=== PATIENT | male | born 1945 | race Caucasian/White ===

== ENCOUNTER 2017-06-10 07:24 | Emergency (ER) | payer MEDICARE, BC | END 2017-06-10 08:00 | disposition home or self-care (01) | LOC: SCSER 07:24 | DX: K11.20 Sialoadenitis, unspecified (principal); E03.9 Hypothyroidism, unspecified; G43.909 Migraine, unspecified, not intractable, without status migrainosus; F41.9 Anxiety disorder, unspecified; F32.9 Major depressive disorder, single episode, unspecified; Z79.899 Other long term (current) drug therapy; Z79.82 Long term (current) use of aspirin | CPT/HCPCS: 99283; J7620 ==

== ENCOUNTER 2018-05-22 09:21 | Observation (INO) | payer MEDICARE, BC ==
[2018-05-22] MEDS ORDERED: Nitroglycerin 2% Ointment 1 INCH/1 GM Packet ONE (09:47)
[2018-05-22] MEDS ORDERED: Aspirin Chewable 81 MG TAB ONE (09:48)
[2018-05-22 09:49] LABS: #Basophils 0.1 thou/uL (0.0-0.2); #Eosinphils 0.2 thou/uL (0.0-0.7); #Lymphocytes 2.1 thou/uL (1.20-3.40); #Monocytes 0.9 thou/uL (0.11-0.59); #Neutrophils 7.9 thou/uL (1.40-6.50); %Basophils 0.9 % (0.0-1.0); %Eosinophils 1.9 % (0.0-10.0); %Lymphocytes 18.6 % (21.0-51.0); %Neutrophils 70.6 % (42.0-75.0); Hemoglobin 15.3 g/dL (14.0-18.0); Mean Corpuscular HGB CONC 33.4 g/dL (32.0-36.0); Mean Corpuscular Volume 92.8 fL (78.0-98.0); Mean Platelet Volume 7.5 fL (7.4-10.4); Platelet Count 217 thou/uL (130-400); RBC Distribution Width 12.4 % (11.5-14.5); Red Blood Cell (RBC) Count 4.94 mill/uL (4.70-6.10); White Blood Cell (WBC) Count 11.1 thou/uL (4.8-10.8)
[2018-05-22 10:04] LABS: ALT (SGPT) 28 U/L (8-55); AST (SGOT) 24 U/L (5-34); Albumin 4.2 g/dL (3.4-4.8); Alkaline Phosphatase 62 U/L (40-150); Anion Gap 13 mmol/L (10-20); BUN (Urea Nitrogen) 13 mg/dL (8.4-25.7); Bilirubin, Total 0.5 mg/dL (0.2-1.2); CK (CPK) 189 U/L (30-200); Calc. Creatinine Clearance 0 mL/min (70-130); Carbon Dioxide 25 mmol/L (23-31); Chloride 105 mmol/L (98-107); Estimated GFR-MDRD 78; Globulin 3.2 g/dL (2.4-3.5); Glucose 102 mg/dL (80-115); Potassium 3.4 mmol/L (3.5-5.1); Protein, Total 7.4 g/dL (5.8-8.1); Sodium 140 mmol/L (136-145)
--- NOTE | 2018-05-22 10:16 | RAD ---
PORTABLE AP CHEST XRAY: DATE: 05/22/2018. HISTORY: Chest pain. COMPARISON: 08/07/2016. FINDINGS: Loop recording device again overlies the left mid chest. Cardiac silhouette and pulmonary vasculatur e are within normal limits. There is minimal linear scarring versus atelectasis at each lung base. The lungs are otherwise clear. No other interval change. IMPRESSION: Minimal bibasilar atelectasis and/or scarring. There is otherwise no acute cardiopulmonary process. POS: NANI
[2018-05-22] MEDS ORDERED: Mag-Al Plus 1200 MG/1200 MG/120 MG/30 ML UDCUP ONE (10:23)
[2018-05-22] MEDS ORDERED: Lidocaine Viscous Sol 2% 15 ml UD Cup ONE (10:23)
[2018-05-22] MEDS ORDERED: Acetaminophen 500 MG TAB ONE (14:08)
[2018-05-22 15:03] VITALS: BMI 32.5
[2018-05-22 15:59] LABS: Troponin I Less than 0.010 ng/mL (< 0.028)
[2018-05-22] MEDS ORDERED: Acetaminophen 325 MG TAB PO PRN (17:57)
[2018-05-22] MEDS ORDERED: Ondansetron ODT 4 MG TAB PO PRN (17:57)
[2018-05-22] MEDS ORDERED: Nitroglycerin 0.4 MG TAB (25 Tab Bottle) PO PRN (17:57)
[2018-05-22] MEDS ORDERED: Guaifenesin DM 100-10/5 ML UDCUP PO PRN (17:57)
[2018-05-22] MEDS ORDERED: Acetaminophen 650 MG Suppository PR PRN (17:57)
[2018-05-22] MEDS ORDERED: Ondansetron PF 4 MG/2 ML Vial IVP PRN (17:57)
[2018-05-22] MEDS ORDERED: Zolpidem Tartrate 5 MG TAB PO PRN (17:58)
[2018-05-22] MEDS ORDERED: HYDROcodone/Acetaminophen 5/325 mg Tablet PO PRN (18:12)
[2018-05-22] MEDS ORDERED: Amlodipine 5 MG TAB PO SCH (18:30)
[2018-05-22 18:37] LABS: Troponin I Less than 0.010 ng/mL (< 0.028)
[2018-05-22] MEDS: diphenhydrAMINE 25 MG CAP PO SCH ×3 (20:06→23:43)
[2018-05-22] MEDS: predniSONE 20 MG TAB PO SCH ×3 (20:07→23:43)
[2018-05-22] MEDS: Famotidine 20 MG TAB PO SCH ×3 (20:07→23:42)
[2018-05-22] MEDS ORDERED: Amitriptyline HCl 25 MG TAB PO SCH (21:00)
[2018-05-22] MEDS ORDERED: Loratadine 10 MG TAB PO SCH (21:00)
[2018-05-22] MEDS ORDERED: Rosuvastatin 20 MG TAB PO SCH (21:00)
[2018-05-22] MEDS: Fish Oil 1,000 MG CAP PO SCH (21:07)
[2018-05-22] MEDS: Acyclovir 400 mg Tablet PO SCH (21:10)
[2018-05-22] MEDS: Primidone 50 MG TAB PO SCH (21:14)
--- NOTE | 2018-05-22 21:41 | HP ---
PRIMARY CARE PHYSICIAN: Nicholas De León MD PRIMARY R[employer] ROUTE CARRIER: Dennis Hicks MD CHIEF COMPLAINT: Chest pain. HISTORY OF PRESENT ILLNESS: This is a 72-year-old white male with a known history of mild coronary artery disease, never requiring stent, last catheterization in 2012, followed by Dr. Hicks, also with an implantable patient monitor due to previous syncopal episodes and most recent echocardiogram done within the last six months. He reports that this morning after he woke up, he got out of bed and around 9 o'clock, he was heading toward the bathroom and he had a sudden severe sharp chest pain in the middle of his back between his shoulder blades, followed by pressure, pain sensation across the front of his chest. This was associated with chest tightness and trouble breathing. He felt a little bit lightheaded like he might pass out, but he did not black out. These symptoms persisted, so he went to the emergency room. In the ER, he was given nitroglycerin paste, which markedly improved the symptoms and now he does have a little dull pressure across the front of his chest. He did have a little nausea with it. No vomiting. No other associated symptoms. The patient has been having a rash across the top of his back, which was papular and red for about 2 or 3 weeks and then it got quite painful, so earlier in this week, he went to his primary care doctor and was diagnosed with possible shingles and put on acyclovir. The papules do tend to cross the midline a little bit though and he had a few down low on his back as well, not just in the line on the top. PAST MEDICAL HISTORY: 1. Mild coronary artery disease. Most recent catheterization in 2012. Never had to have stents or bypass surgery. 2. Hypothyroidism. 3. Obstructive sleep apnea. 4. Sinus allergies. 5. Previous shingles episodes. 6. Hypertension. 7. Hyperlipidemia. 8. Tremors, followed by Dr. Jones. 9. Migraines. PAST SURGICAL HISTORY: 1. Hydrocele in 1964. 2. Appendectomy in 1976. 3. Vasectomy in 1977. 4. Nerve root test in right hand in 1989. 5. Repair of right knee meniscus in 1993. 6. Repair right eye retina in 1994 and left eye retina in 1995. 7. Cholecystectomy in 1998. 8. Left shoulder repair in 2002. 9. Detached retina repair on the right in 2005. 10. Left knee torn meniscus repair in 2009. 11. Right shoulder rotator cuff repair in 2013. 12. Cardiac catheterizations in 2004 and 2012. PSYCHIATRIC HISTORY: 1. Anxiety. 2. Depression. ALLERGIES: 1. IODINE. 2. LASIX. 3. PENICILLIN. 4. SHELLFISH. MEDICATIONS: 1. Acyclovir 400 mg 4 times a day. 2. Aspirin 81 mg twice a day. 3. Amitriptyline 50 mg at night. 4. Amlodipine 2.5 mg daily. 5. Vitamin D3 5000 units daily. 6. Fish oil 1200 mg twice a day. 7. Prozac 40 mg daily. 8. Xyzal 5 mg at night. 9. Synthroid 175 mcg daily. 10. Primidone 100 mg twice a day. 11. Crestor 20 mg at night. REVIEW OF SYSTEMS: CONSTITUTIONAL: No fevers, no chills. No weight changes. EYES: No double vision or blurred vision. ENT: He has had some intermittent nasal congestion and drainage. This is allergic in nature and it comes and goes. No sore throat. CARDIOVASCULAR: See HPI. No orthopnea. PULMONARY: Mild intermittent cough that is chronic from his allergies. No current shortness of breath or wheezing. GASTROINTESTINAL: The patient did have a nausea earlier, none now. No vomiting. No abdominal pain. No diarrhea. He is a little constipated, but does tend to have a bowel movement daily. GENITOURINARY: No dysuria or hematuria. MUSCULOSKELETAL: No muscle aches or joint pains currently, just a back pain earlier that has resolved. SKIN: See HPI. NEUROLOGIC: No numbness or focal weakness. He does have chronic tingling in bilateral lower extremities. PHYSICAL EXAMINATION: VITAL SIGNS: Blood pressure 161/89, pulse 85, respirations 16, temperature 97.8, O2 saturation 96% on room air. GENERAL: This is a well-developed obese, white male, in no acute distress. HEENT: Pupils are equal, round, and reactive to light. Oropharynx is clear without lesions, erythema, or exudate. NECK: Supple. No lymphadenopathy. No thyroid nodules or enlargement. No JVD. HEART: Regular rate and rhythm. No murmurs, rubs, or gallops. LUNGS: Clear to auscultation bilaterally. No wheezes, crackles, or rhonchi. ABDOMEN: Soft, nontender to palpation. Normoactive bowel sounds. No hepatosplenomegaly or other masses. EXTREMITIES: No clubbing, cyanosis, or edema. Good peripheral pulses. SKIN: The patient does have a line of scattered papules that are nontender to palpation without any sort of crusting or vesicles on his left upper back, but this does extend for a few cm into the right side as well and then he has a couple down on the right side of his lumbar spine. No other rashes noted. NEUROLOGIC: Intact strength and sensation in all extremities. No facial droop. PSYCHIATRIC: Alert and oriented x3. Normal mood and affect. LABORATORY DATA: CBC with a white blood cell count of 11.1. The rest is normal. Complete metabolic panel is notable only for potassium of 3.4. His troponins are negative x2. His brain natriuretic peptide was negative. IMAGING: Chest x-ray; I did review the chest x-ray along with the radiologist's report. It does show the implanted recorder. No acute cardiopulmonary process visualized. EKG; I did review the EKG done in the emergency room that shows normal sinus rhythm. There is some QT prolongation, but no ST-segment changes. No T-wave inversions. No acute ischemic changes. ASSESSMENT: 1. Chest pain. The patient does have a history of coronary artery disease. We will watch him on the potline monitor overnight and recheck his troponins one more time to make sure they would not bump. I did talk to Dr. Hicks, the patient's web press operator. He will evaluate the patient in the hospital and determine if he needs a repeat catheterization. 2. Hypertension, currently uncontrolled. We will resume patient's home blood pressure medications. These may need to be titrated up if he remains elevated. We will also continue his nitroglycerin. 3. Hyperlipidemia. We will resume the patient's statin. 4. Depression and anxiety. We will resume patient's fluoxetine. 5. Hypothyroidism. Resume patient's levothyroxine. 6. Gastrointestinal prophylaxis. We will put the patient on Pepcid twice a day. 7. Possible shingles. The patient's rash is not completely characteristic of shingles, but I doubt that the acyclovir is dangerous at this point, so we will go ahead and continue for now. 8. Deep venous thrombosis prophylaxis. We will put the patient on Lovenox subcu and give SCDs while he is in bed. 9. Code status. The patient is a full code. Should he be incapacitated, his would be his medical decision maker, her name is Ekta Dickerson. Job ID: [id number]
[2018-05-23] MEDS: Primidone 50 MG TAB PO SCH (05:59)
[2018-05-23] MEDS: Acyclovir 400 mg Tablet PO SCH ×2 (06:00→13:16)
[2018-05-23] MEDS: Fish Oil 1,000 MG CAP PO SCH (06:00)
[2018-05-23] MEDS ORDERED: Levothyroxine 175 MCG TAB PO SCH (06:00)
[2018-05-23 06:33] LABS: #Lymphocytes 1.2 thou/uL (1.20-3.40); #Monocytes 0.2 thou/uL (0.11-0.59); #Neutrophils 5.7 thou/uL (1.40-6.50); %Basophils 0.3 % (0.0-1.0); %Eosinophils 0.3 % (0.0-10.0); %Lymphocytes 16.5 % (21.0-51.0); %Monocytes 2.6 % (0.0-10.0); %Neutrophils 80.4 % (42.0-75.0); Hemoglobin 14.7 g/dL (14.0-18.0); Mean Corpuscular Hemoglobin 31.9 pg (27.0-31.0); Mean Corpuscular Volume 96.5 fL (78.0-98.0); Mean Platelet Volume 7.8 fL (7.4-10.4); Platelet Count 209 thou/uL (130-400); RBC Distribution Width 12.3 % (11.5-14.5); Red Blood Cell (RBC) Count 4.61 mill/uL (4.70-6.10); White Blood Cell (WBC) Count 7.1 thou/uL (4.8-10.8)
[2018-05-23 07:02] LABS: Anion Gap 13 mmol/L (10-20); BUN (Urea Nitrogen) 17 mg/dL (8.4-25.7); Calc. Creatinine Clearance 118 mL/min (70-130); Carbon Dioxide 21 mmol/L (23-31); Chloride 106 mmol/L (98-107); Estimated GFR-MDRD 78; Glucose 146 mg/dL (80-115); Potassium 4.1 mmol/L (3.5-5.1); Sodium 136 mmol/L (136-145)
[2018-05-23] MEDS ORDERED: Heparin 10,000 UNITS/1 ML VIAL ONE (07:09)
[2018-05-23] MEDS ORDERED: Nitroglycerin 100MG/250ML BOT 0 ML ONE (07:10)
[2018-05-23] MEDS: Famotidine 20 MG TAB PO SCH (07:32)
[2018-05-23] MEDS: predniSONE 20 MG TAB PO SCH (07:33)
[2018-05-23] MEDS: diphenhydrAMINE 25 MG CAP PO SCH (07:33)
[2018-05-23] MEDS ORDERED: Midazolam HCl 2 mg/2 ml Vial ONE (08:11)
[2018-05-23] MEDS ORDERED: Nitroglycerin 0.4 MG TAB (25 Tab Bottle) SL PRN (08:29)
[2018-05-23] MEDS ORDERED: Acetaminophen/Codeine 30-300mg Tablet PO PRN ×2 (08:29)
[2018-05-23] MEDS ORDERED: Sodium Chloride 0.9% 200 ML IV PRN (08:29)
--- NOTE | 2018-05-23 08:30 | PDOC.PN ---
- Subjective Encounter Start Date: 05/23/18 Encounter Start Time: 11:00 Subjective: Patient back from cath this morning. No progression in CAD since last -: cath. No further chest pain. BP still up a bit. - Objective Resuscitation Status - Order Detail: 05/22/18 17:52 Resuscitation Status Routine Resuscitation Status: FULL: Full Resuscitation MAR Reviewed: Yes Vital Signs & Weight: Vital Signs (12 hours) Temp Pulse Resp BP Pulse Ox 05/23/18 05:58 83 05/23/18 04:40 97.8 F 83 18 132/70 94 L 05/22/18 21:08 84 Weight Weight 253 lb 14.4 oz I&O: 05/22/18 05/23/18 05/24/18 06:59 06:59 06:59 Intake Total 1140 Output Total 350 Balance 790 Result Diagrams: 05/23/18 05:00 05/23/18 06:06 Phys Exam - Physical Examination Constitutional: NAD HEENT: moist MMs Respiratory: no wheezing, no rales, no rhonchi Cardiovascular: RRR, no significant murmur Gastrointestinal: soft, positive bowel sounds Neurological: non-focal, moves all 4 limbs Psychiatric: normal affect, A&O x 3 Dx/Plan (1) Chest pain Code(s): R07.9 - CHEST PAIN, UNSPECIFIED Status: Acute Comment: negative troponins and EKG (2) CAD (coronary artery disease) Code(s): I25.10 - ATHSCL HEART DISEASE OF [place] CORONARY ARTERY W/O ANG PCTRS Status: Chronic Qualifiers: Coronary Disease-Associated Artery/Lesion type: [place] artery Comment: mild, repeat cath this morning showing no progression of disease (3) Hypertension Code(s): I10 - ESSENTIAL (PRIMARY) HYPERTENSION Status: Chronic Qualifiers: Hypertension type: essential hypertension Qualified Code(s): I10 - Essential (primary) hypertension Comment: still running a little high, typically low at home, possibly from sodium load a [place] restaraunt the night before coming in (4) Hyperlipidemia Code(s): E78.5 - HYPERLIPIDEMIA, UNSPECIFIED Status: Chronic (5) Depression Code(s): F32.9 - MAJOR DEPRESSIVE DISORDER, SINGLE EPISODE, UNSPECIFIED Status : Chronic Comment: with anxiety, continue home SSRI - Plan cont current plan of care Will d/c home this afternoon if cleared by Dr. Hicks. * . - Discharge Day Encounter end time: 11:15
[2018-05-23] MEDS ORDERED: Enoxaparin Sodium 40 MG/0.4 ML SYRINGE SC SCH (09:00)
[2018-05-23] MEDS ORDERED: Amlodipine 5 MG TAB PO SCH (09:00)
[2018-05-23] MEDS ORDERED: FLUoxetine HCl 20 MG CAP PO SCH (09:00)
[2018-05-23] MEDS ORDERED: Aspirin 325 mg Enteric Coated Tablet PO SCH (09:00)
[2018-05-23 12:12] VITALS: BP 158/78; TEMP 97.6
--- NOTE | 2018-05-23 21:13 | DIS ---
DATE OF ADMISSION: 05/22/2018 DATE OF DISCHARGE: 05/23/2018 PRIMARY CARE PHYSICIAN: Nicholas De León MD REASON FOR ADMISSION: Chest pain. DIAGNOSES AT DISCHARGE: 1. Chest pain, noncardiac. 2. Coronary artery disease, mild, stable. 3. Hypertension. 4. Hyperlipidemia. 5. Depression with anxiety. PROCEDURES: Cardiac catheterization showing 20% stenosis at the mid LAD and 40% ostial stenosis at the first obtuse marginal. CONSULTATION: Cardiology, Dr. Hicks. SUMMARY OF HOSPITAL COURSE: This is a 72-year-old white male with a known history of mild coronary artery disease, never requiring stent or surgery, last catheterized by Dr. Hicks in 2012. He presented with chest pain starting in the morning and had a large [place] dinner at a restaurant, he usually was trying to just eat at home, the night before. Chest pain started with a sharp pain in his back and then progressed to severe chest pressure and shortness of breath. This did improve in the emergency room with nitroglycerin paste. The patient's EKG and cardiac markers were all negative. Dr. Hicks was consulted. He took the patient back for catheterization, which showed no progression of coronary artery disease since his last catheterization. The patient was chest pain free on the day of discharge and is being discharged home. DISCHARGE MANAGEMENT: Discharged home. FOLLOWUP: Follow up with Dr. Hicks as needed and with primary care physician. ACTIVITY: As tolerated. DIET: Healthy heart low-sodium diet. MEDICATIONS: Resume all home medications. 1. Aspirin 81 mg daily. 2. Acyclovir 400 mg 4 times a day. 3. Amitriptyline 50 mg at night. 4. Amlodipine 2.5 mg daily. 5. Vitamin D3 of 5000 units daily. 6. Fish oil 1200 mg twice a day. 7. Prozac 40 mg daily. 8. Xyzal 5 mg at night. 9. Synthroid 175 mcg daily. 10. Primidone 100 mg twice a day. 11. Crestor 20 mg at night. Job ID: [id number]
== END 2018-05-23 15:58 | disposition home or self-care (01) ==
LOC: SCSER 09:21 → ERHOLD 10:57 → 2SW 14:46
PROVIDERS: ADMIT Internal Medicine; ATTEND Internal Medicine
PROC: 4A023N7 Measurement of Cardiac Sampling and Pressure, Left Heart, Percutaneous Approach (ICD-10-PCS; principal; 2018-05-22)
PROC: B2111ZZ Fluoroscopy of Multiple Coronary Arteries using Low Osmolar Contrast (ICD-10-PCS; 2018-05-22)
DX: R07.89 Other chest pain (principal); I25.10 Atherosclerotic heart disease of native coronary artery without angina pectoris; E03.9 Hypothyroidism, unspecified; G47.33 Obstructive sleep apnea (adult) (pediatric); I10 Essential (primary) hypertension; E78.5 Hyperlipidemia, unspecified; G43.909 Migraine, unspecified, not intractable, without status migrainosus; F41.8 Other specified anxiety disorders; Z79.82 Long term (current) use of aspirin; Z79.899 Other long term (current) drug therapy; Z88.0 Allergy status to penicillin; Z91.013 Allergy to seafood; Z91.040 Latex allergy status; Z91.041 Radiographic dye allergy status
CPT/HCPCS: 71045; 80048; 80053; 82550; 83880; 84484 ×2; 85025 ×2; 93005; 93458; 94760; 99285; G0378; 36415; 99152; J1644; J2250; Q0163

== ENCOUNTER 2018-08-31 14:06 | Emergency (ER) | payer MEDICARE, BC | END 2018-08-31 14:33 | disposition home or self-care (01) | LOC: SCSER 14:06 | DX: J02.9 Acute pharyngitis, unspecified (principal); G47.30 Sleep apnea, unspecified; E03.9 Hypothyroidism, unspecified; G43.909 Migraine, unspecified, not intractable, without status migrainosus; F32.9 Major depressive disorder, single episode, unspecified; F41.9 Anxiety disorder, unspecified; Z79.899 Other long term (current) drug therapy; Z79.82 Long term (current) use of aspirin | CPT/HCPCS: 99282 ==

== ENCOUNTER 2021-05-09 09:54 | Outpatient (CLI) | payer MEDICARE, BC | END 2021-05-09 09:55 | disposition home or self-care (01) | LOC: ULT 09:54 | PROVIDERS: ATTEND Internal Medicine Nephrology | DX: N18.30 Chronic kidney disease, stage 3 unspecified (principal); Z90.5 Acquired absence of kidney | CPT/HCPCS: 36415; 76770; 80048; 81001 ==

== ENCOUNTER 2021-05-23 16:30 | Outpatient (CLI) | payer MEDICARE, BC | END 2021-05-23 16:31 | disposition home or self-care (01) | LOC: SLEEPLAB 16:30 | PROVIDERS: ATTEND Internal Medicine | DX: G47.33 Obstructive sleep apnea (adult) (pediatric) (principal); R06.83 Snoring; I10 Essential (primary) hypertension | CPT/HCPCS: 95806 ==

== ENCOUNTER 2021-10-01 23:37 | Inpatient (IN) | payer MEDICARE, BC ==
[2021-10-02 00:41] VITALS: BMI 32.2
[2021-10-02] MEDS ORDERED: Ondansetron ODT 4 MG TAB PO PRN (04:59)
[2021-10-02 05:39] LABS: #Monocytes 1.1 thou/uL (0.11-0.59); %Basophils 0.1 % (0.0-1.0); %Eosinophils 0.1 % (0.0-10.0); %Lymphocytes 9.8 % (21.0-51.0); %Monocytes 10.8 % (0.0-10.0); %Neutrophils 79.2 % (42.0-75.0); Mean Corpuscular HGB CONC 32.6 g/dL (32.0-36.0); Mean Corpuscular Hemoglobin 32.4 pg (27.0-31.0); Mean Corpuscular Volume 99.3 fL (78.0-98.0); Mean Platelet Volume 7.1 fL (7.4-10.4); Platelet Count 190 thou/uL (130-400); RBC Distribution Width 12.5 % (11.5-14.5); Red Blood Cell (RBC) Count 4.03 mill/uL (4.70-6.10); White Blood Cell (WBC) Count 10.1 thou/uL (4.8-10.8)
[2021-10-02 06:00] LABS: ALT (SGPT) 18 U/L (8-55); AST (SGOT) 13 U/L (5-34); Albumin 3.5 g/dL (3.4-4.8); Alkaline Phosphatase 65 U/L (40-110); Anion Gap 13 mmol/L (10-20); BUN (Urea Nitrogen) 13 mg/dL (8.4-25.7); Calc. Creatinine Clearance 109 mL/min (70-130); Carbon Dioxide 22 mmol/L (23-31); Chloride 107 mmol/L (98-107); Globulin 2.9 g/dL (2.4-3.5); Glucose 98 mg/dL (83-110); Potassium 3.9 mmol/L (3.5-5.1); Protein, Total 6.4 g/dL (5.8-8.1); Sodium 138 mmol/L (136-145)
[2021-10-02] MEDS: Cefepime 2 GM in Sodium Chloride 0.9% 100 ML IVPB SCH ×3 (06:14→23:04)
[2021-10-02] MEDS: VANCOMYCIN 1.75 GM/500 ML BAG 1.75 GM in Premix Bag 1 BAG IVPB SCH ×2 (08:37→21:32)
[2021-10-02] MEDS: Aspirin 81 mg Enteric Coated Tablet PO SCH ×2 (08:41→21:32)
[2021-10-02] MEDS: Acetaminophen 325 MG TAB PO PRN ×2 (08:41→14:15)
[2021-10-02] MEDS: Enoxaparin Sodium 40 MG/0.4 ML SYRINGE SC SCH (08:41)
[2021-10-02] MEDS: Levothyroxine 175 MCG TAB PO SCH (08:42)
[2021-10-02] MEDS: Bupropion 150 MG SR TAB PO SCH (08:42)
[2021-10-02] MEDS: Fish Oil 1,000 MG CAP PO SCH ×2 (08:42→21:32)
[2021-10-02] MEDS: Primidone 50 MG TAB PO SCH ×2 (08:43→21:33)
[2021-10-02] MEDS: Loratadine 10 MG TAB PO SCH (08:43)
[2021-10-02] MEDS: Rosuvastatin 20 MG TAB PO SCH (08:43)
[2021-10-02] MEDS: FLUoxetine HCl 20 MG CAP PO SCH (08:43)
[2021-10-02] MEDS: Cholecalciferol 1,000 UNITS (25 MCG) TAB PO SCH (08:54)
[2021-10-02] MEDS: Amitriptyline HCl 25 MG TAB PO SCH (21:33)
[2021-10-02] MEDS: Zolpidem Tartrate 5 MG TAB PO PRN (23:04)
[2021-10-03] MEDS: Cefepime 2 GM in Sodium Chloride 0.9% 100 ML IVPB SCH ×3 (05:21→23:49)
[2021-10-03 05:38] LABS: #Eosinphils 0.1 thou/uL (0.0-0.7); #Lymphocytes 1.4 thou/uL (1.20-3.40); #Monocytes 1.2 thou/uL (0.11-0.59); #Neutrophils 6.9 thou/uL (1.40-6.50); %Basophils 0.1 % (0.0-1.0); %Eosinophils 0.8 % (0.0-10.0); %Lymphocytes 14.4 % (21.0-51.0); %Monocytes 12.2 % (0.0-10.0); %Neutrophils 72.5 % (42.0-75.0); Hemoglobin 12.1 g/dL (14.0-18.0); Mean Corpuscular HGB CONC 32.8 g/dL (32.0-36.0); Mean Corpuscular Hemoglobin 32.7 pg (27.0-31.0); Mean Corpuscular Volume 99.6 fL (78.0-98.0); Mean Platelet Volume 7.5 fL (7.4-10.4); Platelet Count 155 thou/uL (130-400); RBC Distribution Width 12.3 % (11.5-14.5); White Blood Cell (WBC) Count 9.6 thou/uL (4.8-10.8)
[2021-10-03 06:03] LABS: Anion Gap 12 mmol/L (10-20); BUN (Urea Nitrogen) 9 mg/dL (8.4-25.7); Calc. Creatinine Clearance 112 mL/min (70-130); Calcium 8.4 mg/dL (7.8-10.44); Carbon Dioxide 24 mmol/L (23-31); Chloride 104 mmol/L (98-107); Glucose 93 mg/dL (83-110); Potassium 3.9 mmol/L (3.5-5.1); Sodium 136 mmol/L (136-145)
[2021-10-03 07:16] LABS: Vancomycin, Trough 15.5 ug/mL
[2021-10-03] MEDS: Cholecalciferol 1,000 UNITS (25 MCG) TAB PO SCH (10:01)
[2021-10-03] MEDS: Aspirin 81 mg Enteric Coated Tablet PO SCH ×2 (10:01→20:36)
[2021-10-03] MEDS: Bupropion 150 MG SR TAB PO SCH (10:01)
[2021-10-03] MEDS: Fish Oil 1,000 MG CAP PO SCH ×2 (10:03→20:36)
[2021-10-03] MEDS: Enoxaparin Sodium 40 MG/0.4 ML SYRINGE SC SCH (10:03)
[2021-10-03] MEDS: FLUoxetine HCl 20 MG CAP PO SCH (10:03)
[2021-10-03] MEDS: Levothyroxine 175 MCG TAB PO SCH (10:03)
[2021-10-03] MEDS: Loratadine 10 MG TAB PO SCH (10:04)
[2021-10-03] MEDS: Rosuvastatin 20 MG TAB PO SCH (10:04)
[2021-10-03] MEDS: Primidone 50 MG TAB PO SCH ×2 (10:04→20:36)
[2021-10-03] MEDS: VANCOMYCIN 1.75 GM/500 ML BAG 1.75 GM in Premix Bag 1 BAG IVPB SCH ×2 (11:01→20:37)
[2021-10-03] MEDS ORDERED: Amlodipine 5 MG TAB PO SCH (16:15)
[2021-10-03] MEDS ORDERED: SUMAtriptan Succinate 6 MG/0.5 ML VIAL SC SCH (16:30)
[2021-10-03] MEDS ORDERED: cloNIDine 0.1 MG TAB PO PRN (17:33)
[2021-10-03] MEDS ORDERED: Labetalol HCl 100 MG/20 ML VIAL SLOW IVP PRN (17:33)
[2021-10-03] MEDS: hydrALAZINE 25 MG TAB PO SCH ×2 (17:51→20:35)
[2021-10-03] MEDS: Phenazopyridine HCl 97.5 MG TABLET PO SCH (17:58)
[2021-10-03] MEDS: Amitriptyline HCl 25 MG TAB PO SCH (20:35)
[2021-10-03] MEDS: Zolpidem Tartrate 5 MG TAB PO PRN (22:07)
[2021-10-04] MEDS: Cefepime 2 GM in Sodium Chloride 0.9% 100 ML IVPB SCH ×2 (05:35→15:37)
[2021-10-04 08:12] LABS: #Eosinphils 0.1 thou/uL (0.0-0.7); #Lymphocytes 1.4 thou/uL (1.20-3.40); #Monocytes 1.1 thou/uL (0.11-0.59); #Neutrophils 5.4 thou/uL (1.40-6.50); %Basophils 0.4 % (0.0-1.0); %Eosinophils 1.5 % (0.0-10.0); %Lymphocytes 17.8 % (21.0-51.0); %Monocytes 13.6 % (0.0-10.0); %Neutrophils 66.7 % (42.0-75.0); Hemoglobin 12.9 g/dL (14.0-18.0); Mean Corpuscular HGB CONC 33.3 g/dL (32.0-36.0); Mean Corpuscular Hemoglobin 32.7 pg (27.0-31.0); Platelet Count 177 thou/uL (130-400); RBC Distribution Width 12.1 % (11.5-14.5); Red Blood Cell (RBC) Count 3.94 mill/uL (4.70-6.10)
[2021-10-04] MEDS: Fish Oil 1,000 MG CAP PO SCH (08:28)
[2021-10-04] MEDS: Bupropion 150 MG SR TAB PO SCH (08:31)
[2021-10-04] MEDS: FLUoxetine HCl 20 MG CAP PO SCH (08:31)
[2021-10-04] MEDS: Levothyroxine 175 MCG TAB PO SCH (08:31)
[2021-10-04] MEDS: Rosuvastatin 20 MG TAB PO SCH (08:31)
[2021-10-04] MEDS: Cholecalciferol 1,000 UNITS (25 MCG) TAB PO SCH (08:31)
[2021-10-04] MEDS: Aspirin 81 mg Enteric Coated Tablet PO SCH ×2 (08:31→20:58)
[2021-10-04] MEDS: Phenazopyridine HCl 97.5 MG TABLET PO SCH ×3 (08:31→17:24)
[2021-10-04] MEDS: hydrALAZINE 25 MG TAB PO SCH ×4 (08:32→20:57)
[2021-10-04] MEDS: Enoxaparin Sodium 40 MG/0.4 ML SYRINGE SC SCH (08:32)
[2021-10-04] MEDS: Loratadine 10 MG TAB PO SCH (08:32)
[2021-10-04 08:34] LABS: Anion Gap 13 mmol/L (10-20); BUN (Urea Nitrogen) 9 mg/dL (8.4-25.7); Calc. Creatinine Clearance 132 mL/min (70-130); Calcium 8.6 mg/dL (7.8-10.44); Carbon Dioxide 23 mmol/L (23-31); Chloride 103 mmol/L (98-107); Glucose 91 mg/dL (83-110); Potassium 3.5 mmol/L (3.5-5.1); Sodium 135 mmol/L (136-145)
[2021-10-04] MEDS: Primidone 50 MG TAB PO SCH ×2 (08:38→20:58)
[2021-10-04] MEDS ORDERED: Amlodipine 5 MG TAB PO SCH (09:00)
[2021-10-04] MEDS: VANCOMYCIN 1.75 GM/500 ML BAG 1.75 GM in Premix Bag 1 BAG IVPB SCH (09:26)
[2021-10-04] MEDS ORDERED: Furosemide 40 MG/4 ML VIAL SLOW IVP SCH (09:45)
[2021-10-04] MEDS ORDERED: SUMAtriptan Succinate 6 MG/0.5 ML VIAL SC PRN (17:51)
[2021-10-04] MEDS: Amitriptyline HCl 25 MG TAB PO SCH (20:58)
[2021-10-04] MEDS ORDERED: Tamsulosin HCl 0.4 MG CAP PO SCH (21:00)
[2021-10-04] MEDS: Zolpidem Tartrate 5 MG TAB PO PRN (21:04)
[2021-10-05 05:09] LABS: #Eosinphils 0.2 thou/uL (0.0-0.7); #Lymphocytes 1.4 thou/uL (1.20-3.40); #Neutrophils 4.1 thou/uL (1.40-6.50); %Basophils 0.3 % (0.0-1.0); %Eosinophils 2.8 % (0.0-10.0); %Lymphocytes 21.1 % (21.0-51.0); %Monocytes 14.4 % (0.0-10.0); %Neutrophils 61.4 % (42.0-75.0); Hemoglobin 12.9 g/dL (14.0-18.0); Mean Corpuscular HGB CONC 33.6 g/dL (32.0-36.0); Mean Corpuscular Hemoglobin 32.7 pg (27.0-31.0); Mean Corpuscular Volume 97.3 fL (78.0-98.0); Mean Platelet Volume 7.2 fL (7.4-10.4); Platelet Count 197 thou/uL (130-400); Red Blood Cell (RBC) Count 3.94 mill/uL (4.70-6.10); White Blood Cell (WBC) Count 6.6 thou/uL (4.8-10.8)
[2021-10-05 05:30] LABS: Anion Gap 13 mmol/L (10-20); BUN (Urea Nitrogen) 12 mg/dL (8.4-25.7); Calc. Creatinine Clearance 121 mL/min (70-130); Calcium 8.8 mg/dL (7.8-10.44); Carbon Dioxide 25 mmol/L (23-31); Chloride 101 mmol/L (98-107); Estimated GFR 91; Glucose 96 mg/dL (83-110); Potassium 3.3 mmol/L (3.5-5.1); Sodium 136 mmol/L (136-145)
[2021-10-05] MEDS ORDERED: Potassium Chloride 20 MEQ TAB PO SCH (09:15)
[2021-10-05] MEDS: Enoxaparin Sodium 40 MG/0.4 ML SYRINGE SC SCH (10:09)
[2021-10-05] MEDS: Cholecalciferol 1,000 UNITS (25 MCG) TAB PO SCH (10:09)
[2021-10-05] MEDS: Primidone 50 MG TAB PO SCH (10:10)
[2021-10-05] MEDS: Aspirin 81 mg Enteric Coated Tablet PO SCH (10:10)
[2021-10-05] MEDS: Bupropion 150 MG SR TAB PO SCH (10:10)
[2021-10-05] MEDS: hydrALAZINE 25 MG TAB PO SCH ×2 (10:10→14:01)
[2021-10-05] MEDS: Levothyroxine 175 MCG TAB PO SCH (10:11)
[2021-10-05] MEDS: Rosuvastatin 20 MG TAB PO SCH (10:11)
[2021-10-05] MEDS: Phenazopyridine HCl 97.5 MG TABLET PO SCH ×2 (10:12→14:25)
[2021-10-05] MEDS: Loratadine 10 MG TAB PO SCH (10:12)
[2021-10-05] MEDS: FLUoxetine HCl 20 MG CAP PO SCH (10:13)
[2021-10-05 12:01] VITALS: BP 148/80; TEMP 97.4
[2021-10-05] MEDS ORDERED: Phenazopyridine HCl 100 MG TAB PO SCH (18:00)
[2021-10-06] MEDS ORDERED: Amlodipine 5 MG TAB PO SCH (09:00)
== END 2021-10-05 14:25 | disposition home or self-care (01) | DRG 871 ==
LOC: 2SW 10-02 00:08
PROVIDERS: ADMIT Internal Medicine; ATTEND Internal Medicine
DX: A41.9 Sepsis, unspecified organism (principal); I50.31 Acute diastolic (congestive) heart failure; N39.0 Urinary tract infection, site not specified; E87.1 Hypo-osmolality and hyponatremia; Z20.822 Contact with and (suspected) exposure to COVID-19; I16.0 Hypertensive urgency; E78.5 Hyperlipidemia, unspecified; G43.909 Migraine, unspecified, not intractable, without status migrainosus; K21.9 Gastro-esophageal reflux disease without esophagitis; E03.9 Hypothyroidism, unspecified; I25.10 Atherosclerotic heart disease of native coronary artery without angina pectoris; E66.9 Obesity, unspecified; I11.0 Hypertensive heart disease with heart failure; E87.6 Hypokalemia; Z68.32 Body mass index [BMI] 32.0-32.9, adult; Z91.041 Radiographic dye allergy status; Z91.040 Latex allergy status; Z91.013 Allergy to seafood; Z88.0 Allergy status to penicillin; Z79.82 Long term (current) use of aspirin; Z79.899 Other long term (current) drug therapy; Z79.890 Hormone replacement therapy; Z98.52 Vasectomy status; Z90.49 Acquired absence of other specified parts of digestive tract; Z98.890 Other specified postprocedural states; Z82.49 Family history of ischemic heart disease and other diseases of the circulatory system
CPT/HCPCS: 36415; 36416; 71045; 76770; 80048; 80053; 80202; 81003; 83605; 83880; 85025; 87040; 87077; 87086; 87186; 93005; 93306; J0692; J0696; J1650; J1940; J1956; J3030; J3370; J3490; U0002

== ENCOUNTER 2024-01-31 07:40 | Outpatient (CLI) | payer MEDICARE, BC | END 2024-01-31 07:41 | disposition home or self-care (01) | LOC: NM 07:40 | PROVIDERS: ATTEND Psychiatry & Neurology Neurology | DX: R25.1 Tremor, unspecified (principal); R90.89 Other abnormal findings on diagnostic imaging of central nervous system | CPT/HCPCS: 78803; A9584 ×2 ==